=== PATIENT | female | born 1980 | race African-American/Black ===

== ENCOUNTER 2019-02-13 20:41 | Emergency (ER) | payer OTHER ==
[2019-02-13 20:49] VITALS: BP 127/73; PULSE 83; TEMP 98.1; BMI 35.4
[2019-02-13] MEDS ORDERED: IBUPROFEN 600 MG TABLET (FP) PO ONE ×2 (20:51→20:53)
--- NOTE | 2019-02-13 21:36 | PDOC ---
Documentation entered by Jefferson Bowman SCRIBE, acting as scribe for Patricio Luna MD. Patricio Luna MD: This documentation has been prepared by the Colby flores Xhesika, SCRIBE, under my direction and personally reviewed by me in its entirety. I confirm that the documentation accurately reflects all work, treatment, procedures, and medical decision making performed by me. History of Present Illness - General Chief Complaint: Injury Stated Complaint: RIGHT ANKLE INJURY Time Seen by Provider: 02/13/19 20:44 History Source: Patient Exam Limitations: No Limitations - History of Present Illness Initial Comments: 02/13/19 20:50 Assessment and plan: This is a 38-year-old female who comes in complaining of twisted her right ankle while rushing to catch a train to go to work. Patient went to the nurse at her work and was given an Bill wrap and some cream to put on the ankle. Patient now comes in complaining of increased pain patient did not take anything for the pain other than the cream. 02/13/19 20:54 The patient is a 38 year old female, with no significant past medical history of who presents to the emergency department with R ankle pain. The patient states she was rushing to catch the train this morning, was about to fall, caught her fall and rolled her ankle. The patient states she used muscle relaxer cream and an ice wrap on her foot that she received from her nurse at her job, however, denies taking any anti inflammatory medications. PAST MEDICAL HISTORY: no significant history PAST SURGICAL HISTORY: no significant history FAMILY HISTORY: no pertinent history SOCIAL HISTORY: Pt lives with family and is employed. MEDICATIONS: reviewed ALLERGIES: As per nursing notes Past History - Past Medical History Allergies/Adverse Reactions: Allergies Allergy/AdvReac Type Severity Reaction Status Date / Time No Known Allergies Allergy Verified 07/11/16 20:46 Home Medications: Ambulatory Orders Ibuprofen 600 mg PO QID PRN #20 tablet 07/11/16 Oxycodone HCl/Acetaminophen [Percocet 5-325 mg Tablet] 1 tab PO Q6H PRN #10 tablet MDD 4 07/11/16 - Suicide/Smoking/Psychosocial Hx Smoking History: Never smoked Review of Systems - Review of Systems Able to Perform ROS?: Yes Comments:: 02/13/19 20:54 General: No fevers or chills, no weakness, no weight loss HEENT: No change in vision. No sore throat,. No ear pain CardioVascular: No chest pain or shortness of breath Respiratory:No cough, or wheezing. Gastrointestinal: no nausea, vomiting, diarrhea or constipation, No rectal bleeding Genitourinary: No dysuria, hematuria, or frequency Musculoskeletal: (+) R ankle pain. Neurologic: No headache, vertigo, dizziness or loss of consciousness Psychiatric: nor depression Skin: No rashes or easy bruising Endocrine: no increased thirst or abnormal weight change Allergic: no skin or latex allergy All other systems reviewed and normal *Physical Exam - Vital Signs Last Vital Signs Temp Pulse Resp BP Pulse Ox 98.1 F 83 15 127/73 99 02/13/19 20:42 02/13/19 20:42 02/13/19 20:42 02/13/19 20:42 02/13/19 20:42 - Physical Exam Comments: 02/13/19 20:54 GENERAL: The patient is awake, alert, and fully oriented, in no acute distress. HEAD: Normal with no signs of trauma. EYES: Pupils equal, round and reactive to light, extraocular movements intact, sclera anicteric, conjunctiva clear. EXTREMITIES: (+) R ankle pain and swelling of lateral malleolus. No tenderness to palpation on 5th metatarsal. Neurovascular intact. Decreased range of motion at ankle region, no ecchymosis. NEUROLOGICAL: Normal speech, normal gait. PSYCH: Normal mood, normal affect. SKIN: Warm, Dry, normal turgor, no rashes or lesions noted. ED Treatment Course - RADIOLOGY Radiology Studies Ordered: Category Date Time Status ANKLE-RIGHT [RAD] Stat Radiology 02/13/19 20:46 Ordered *DC/Admit/Observation/Transfer Diagnosis at time of Disposition: Right ankle sprain Qualifiers: Encounter type: initial encounter Involved ligament of ankle: unspecified ligament Qualified Code(s): S93.401A - Sprain of unspecified ligament of right ankle, initial encounter - Discharge Dispostion Disposition: HOME Condition at time of disposition: Good Decision to Admit order: No - Referrals Referrals: Parish Apodaca [Primary Care Provider] - - Patient Instructions Additional Instructions: Take ibuprofen 3 tablets 3 times a day with food for the pain. Wear the Bill wrap for additional support and ice the ankle 20 minutes 3-4 times a day for the next 48 hours Use crutches as needed for ambulation however it is okay to bear weight. Return to the emergency department immediately with ANY new, persistent or worsening symptoms. Continue any medications as previously prescribed by your physician. You should follow up with your primary doctor as soon as possible regarding today's emergency department visit. . Please make sure your doctor reviews the results of your emergency evaluation. Thank you for coming to the Emergency Department today for your care. It was a pleasure to see you today. Please note that your evaluation is INCOMPLETE until you follow-up with your doctor. - Post Discharge Activity
== END 2019-02-13 21:49 | disposition home or self-care (01) ==
LOC: FER 20:41
DX: S93.401A Sprain of unspecified ligament of right ankle, initial encounter (principal); X58.XXXA Exposure to other specified factors, initial encounter; Y93.02 Activity, running; Y92.410 Unspecified street and highway as the place of occurrence of the external cause
CPT/HCPCS: 73610-TC-RT-FY; 99282-25

== ENCOUNTER 2021-04-18 16:42 | Emergency (ER) | payer OTHER ==
[2021-04-18 16:47] VITALS: BP 108/68; PULSE 75; TEMP 98.1; BMI 35.4
== END 2021-04-18 17:42 | disposition home or self-care (01) ==
LOC: JERFT 16:42
DX: K08.89 Other specified disorders of teeth and supporting structures (principal)
CPT/HCPCS: 99281-25

== ENCOUNTER 2022-06-22 11:25 | Emergency (ER) | payer OTHER ==
[2022-06-22 11:33] VITALS: BP 107/53; PULSE 69; RESP 18; TEMP 98.1; BMI 37.3
[2022-06-22 12:46] LABS: EPI CELLS 10 /uL (0-25.1); HCG,QUALITATIVE URINE Positive; HYALINE CASTS 1 /uL (0-3.1); PH,URINE 5.5 (5.0-8.0); URINE APPEARANCE CLEAR; URINE BACTERIA 882 /uL (0-1359); URINE BILIRUBIN NEGATIVE (NEGATIVE); URINE COLOR YELLOW; URINE GLUCOSE (UA) NEGATIVE (NEGATIVE); URINE KETONE NEGATIVE (NEGATIVE); URINE LEUK ESTERASE TRACE (NEGATIVE); URINE NITRITE NEGATIVE (NEGATIVE); URINE PROTEIN NEGATIVE (NEGATIVE); URINE RBC 14 /uL (0-23.9); URINE UROBILINOGEN 0.2 mg/dL (0.2-1.0); URINE WBC 59 /uL (0-25.8)
[2022-06-22] MEDS ORDERED: ONDANSETRON *ODT* 4 MG TABLET SL ONE (12:58)
[2022-06-22] MEDS ORDERED: ONDANSETRON *ODT* 4 MG TABLET ONE (13:00)
== END 2022-06-22 13:08 ==
LOC: JER 11:25
DX: O21.9 Vomiting of pregnancy, unspecified (principal); Z3A.01 Less than 8 weeks gestation of pregnancy
CPT/HCPCS: 81003; 84703; 87086; 87186; 99283-25; Q0162

== ENCOUNTER 2022-12-17 18:27 | Emergency (ER) | payer OTHER ==
[2022-12-17 18:41] VITALS: BP 112/65; PULSE 78; RESP 18; TEMP 98.4; BMI 39.8
[2022-12-17] MEDS ORDERED: ACETAMINOPHEN 500 MG TABLET (FP) PO ONE (19:40)
[2022-12-17] MEDS ORDERED: AMOX TR/POT CLAV 500MG/125MG TABLETS (FP) PO ONE (19:40)
[2022-12-17] MEDS ORDERED: ACETAMINOPHEN 500 MG TABLET (FP) ONE (19:41)
[2022-12-17] MEDS ORDERED: AMOX TR/POT CLAV 500MG/125MG TABLETS (FP) ONE (19:41)
== END 2022-12-17 20:05 | disposition home or self-care (01) ==
LOC: JER 18:27 → JERFT 18:27
DX: K08.89 Other specified disorders of teeth and supporting structures (principal)
CPT/HCPCS: 99283-25

== ENCOUNTER 2023-01-27 08:20 | Inpatient (IN) | payer OTHER ==
[2023-01-27] MEDS ORDERED: ELECTROLYTE-148 SOLN 500 ML IV ONE (09:10)
[2023-01-27] MEDS ORDERED: CITRIC ACID/SODIUM CITRATE 30 ML UNIT-DOSE CUP PO ONE (09:10)
[2023-01-27 09:35] VITALS: BMI 39.8
[2023-01-27] MEDS ORDERED: LIGASURE IMPACT TP ONE (09:57)
[2023-01-27] MEDS ORDERED: ONDANSETRON 4 MG/2 ML VIAL IVPUSH PRN (12:23)
[2023-01-27] MEDS ORDERED: ACETAMINOPHEN 1000 MG/100 ML BAG IVPB PRN (12:37)
[2023-01-27] MEDS ORDERED: ONDANSETRON 4 MG/2 ML VIAL IVPB PRN (12:37)
[2023-01-27] MEDS ORDERED: OXYTOCIN 20 UNITS in 0.9% NS 20 UNIT/1,000 ML INFUS.BAG IV SCH (12:45)
[2023-01-27] MEDS ORDERED: OXYTOCIN 20 UNITS in 0.9% NS 20 UNIT/1,000 ML INFUS.BAG IV ONE (13:07)
[2023-01-27] MEDS: IBUPROFEN 800 MG/8 ML IJ IVPB PRN (15:49)
[2023-01-27] MEDS: CEFAZOLIN SODIUM 2 GM in DEXTROSE 5%-WATER 100 ML IVPB SCH (18:01)
[2023-01-28] MEDS: CEFAZOLIN SODIUM 2 GM in DEXTROSE 5%-WATER 100 ML IVPB SCH (02:57)
[2023-01-28] MEDS: IBUPROFEN 800 MG/8 ML IJ IVPB PRN (05:44)
[2023-01-28 06:25] VITALS: RESP 18
[2023-01-28 07:53] LABS: BASO % 0.2 % (0-2.0); EOS % 0.8 % (0-4.5); HEMATOCRIT 33.1 % (32.4-45.2); HEMOGLOBIN 10.7 GM/dL (10.7-15.3); LYMPH % 7.6 % (8-40); MCH 24.3 pg (25.7-33.7); MCHC 32.3 g/dl (32.0-36.0); MEAN CELL VOLUME 75.1 fl (80-96); MEAN PLT VOLUME 8.4 fl (7.5-11.1); NEUT % 83.4 % (42.8-82.8); PLATELET COUNT 262 10^3/uL (134-434); RDW 16.1 % (11.6-15.6); WHITE BLOOD COUNT 13.2 K/mm3 (4.0-10.0)
[2023-01-28] MEDS: PRENATAL VITAMINS W/ FOLIC ACID TABLET (FP) PO SCH (09:55)
[2023-01-28] MEDS: ENOXAPARIN NA (PORCINE) 40 MG/0.4 ML DISP.SYRIN SQ SCH (09:56)
[2023-01-28] MEDS ORDERED: BISACODYL 10 MG SUPP.RECT RC PRN (12:37)
[2023-01-28] MEDS: IBUPROFEN 600 MG TABLET (FP) PO PRN ×2 (14:43→21:26)
[2023-01-28] MEDS: SENNOSIDES/DOCUSATE COMBO (SENNA PLUS) TABLET (UD) PO PRN (21:27)
[2023-01-28] MEDS: SIMETHICONE 80 MG TAB.CHEW (FP) PO PRN (21:27)
[2023-01-29] MEDS: SIMETHICONE 80 MG TAB.CHEW (FP) PO PRN ×4 (01:26→23:48)
[2023-01-29] MEDS: ACETAMINOPHEN 325 MG TABLET (FP) PO PRN ×2 (01:26→12:45)
[2023-01-29] MEDS: IBUPROFEN 600 MG TABLET (FP) PO PRN ×2 (05:38→21:47)
[2023-01-29] MEDS: PRENATAL VITAMINS W/ FOLIC ACID TABLET (FP) PO SCH (09:47)
[2023-01-29] MEDS: ENOXAPARIN NA (PORCINE) 40 MG/0.4 ML DISP.SYRIN SQ SCH (09:47)
[2023-01-29] MEDS: oxyCODONE HCL 5 MG TABLET PO PRN ×2 (12:44→19:35)
[2023-01-29] MEDS: SENNOSIDES/DOCUSATE COMBO (SENNA PLUS) TABLET (UD) PO PRN (19:35)
[2023-01-30] MEDS: oxyCODONE HCL 5 MG TABLET PO PRN (01:26)
[2023-01-30] MEDS: IBUPROFEN 600 MG TABLET (FP) PO PRN (07:35)
[2023-01-30] MEDS: SIMETHICONE 80 MG TAB.CHEW (FP) PO PRN (07:35)
[2023-01-30 08:42] VITALS: BP 99/54; PULSE 87; TEMP 97.8
[2023-01-30] MEDS: ENOXAPARIN NA (PORCINE) 40 MG/0.4 ML DISP.SYRIN SQ SCH (09:40)
[2023-01-30] MEDS: PRENATAL VITAMINS W/ FOLIC ACID TABLET (FP) PO SCH (09:41)
[2023-01-30] MEDS: ACETAMINOPHEN 325 MG TABLET (FP) PO PRN (09:41)
== END 2023-01-30 13:40 | disposition home or self-care (01) | DRG 785 ==
LOC: JLDR 08:20 → J3W 14:05
PROVIDERS: ADMIT Specialist; ATTEND Specialist
PROC: 10D00Z1 Extraction of Products of Conception, Low, Open Approach (ICD-10-PCS; principal; 2023-01-27)
PROC: 0UT70ZZ Resection of Bilateral Fallopian Tubes, Open Approach (ICD-10-PCS; 2023-01-27)
DX: O34.211 Maternal care for low transverse scar from previous cesarean delivery (principal); O32.2XX0 Maternal care for transverse and oblique lie, not applicable or unspecified; Z3A.39 39 weeks gestation of pregnancy; Z37.0 Single live birth
CPT/HCPCS: 36415; 85025; 88302-TC; 88307-TC; 94010